=== PATIENT | female | born 1950 | race Caucasian/White ===

== ENCOUNTER → 2017-02-05 | Outpatient (CLI) | payer BC ==
[~2017-02-05] MED LIST: ALBUAER2 INH; AMB5 PO; ASPI81TA21 PO; CHOL100010 PO; CLC100X PO; FLVHFA220 INH; GARLTAB3 PO; GLC/500 PO; LISI-788 PO; OMEG10007 PO; SYN75 PO
--- NOTE | 2017-02-06 12:10 | MAMMOGRAPHY REPORT ---
BILATERAL DIGITAL SCREENING MAMMOGRAM TOMOSYNTHESIS WITH CAD: 02/05/2017 CLINICAL HISTORY: Asymptomatic. Personal history of breast cancer. TECHNIQUE: Breast tomosynthesis in addition to standard 2D mammography was performed. Current study was also evaluated with a Computer Aided Detection (CAD) system. COMPARISON: Comparison is made to exams dated: 01/03/2016 mammogram, 12/30/2014 mammogram, 12/08/2013 m ammogram, 12/07/2012 mammogram, 12/06/2011 mammogram, and 05/22/2010 mammogram - [facility] enter. BREAST COMPOSITION: There are scattered areas of fibroglandular density in both breasts. FINDINGS: Linear scar markers overlie each breast. There is a stable ribbon shaped metallic biopsy m arker in the 9:00 right breast and a few benign-appearing calcifications bilaterally. No suspicious spiculated or irregular mass, architectural distortion or cluster of microcalcifications is seen. IMPRESSION: ACR BI-RADS CATEGORY 1: NEGATIVE There is no mammographic evidence of malignancy. A 1 year screening mammogram is recommended. The pa tient will receive written notification of the results. Approximately 10% of breast cancers are not detected with mammography. A negative mammographic report should not delay biopsy if a clinically suggestive mass is present. Cathy Naik M.D. ay/:02/05/2017 15:56:10 Fish Net Stringer: Pat KHANNA(Ricardo)(Jean), [facility] letter sent: Normal 1/2 BI-RADS Code: ACR BI-RADS Category 1: Negative
== END | disposition home or self-care (01) ==
LOC: C.MAMM 11:40
PROVIDERS: ATTEND Internal Medicine Hematology
DX: Z12.31 Encounter for screening mammogram for malignant neoplasm of breast (principal)

== ENCOUNTER → 2017-05-15 | Outpatient (CLI) | payer BC ==
[2017-05-15 13:13] VITALS: BP 107/71; PULSE 81; TEMP 36.9; O2SAT 97
--- NOTE | 2017-05-15 14:10 | Radiation Oncology Follow-Up ---
Radiation Oncology Follow-Up Date of Visit May 15, 2017. Reason For Visit annual follow up Radiation Completion Date 01/03/10 Diagnosis (1) Breast cancer of upper-outer quadrant of left female breast Status: Resolved Onset Date: 09/23/2008 Histology Subtype: ductal Stage: ll (A) Permanent Comment: Infiltrating ductal carcinoma of the left breast status post partial mastectomy and sentinel lymph node biopsy followed by axillary dissection Stage [id number] estrogen receptor negative, progesterone receptor negative, HER- 2/umu positive Status post systemic chemotherapy with 4 cycles of Adriamycin and Cytoxan followed by weekly Taxol for 12 weeks then Herceptin Status post completion of radiation therapy 01/03/2010 received 6120 cGy Status post completion of one year of Herceptin Last Edited By: Jannette Fournier on May 10, 2015 13:45 Interim History She's been doing well this past year regards to her breast. She is noted no masses or tenderness no change in the axilla. She's had no swelling of her arm. She is up-to-date on mammography. She had a mammogram 02/05/2017. There was no mammographic evidence of malignancy. One-year screening mammogram was recommended. This was given a BI-RADS Category 1. She will be seeing Dr. Wilson in regards to an issue that occurred this past summer. In January she had one episode of chest pain. She describes this as a "squeezing" feeling in her chest internally. She had been under stress. Her sister has liver cancer. She is been taking her every 4-6 weeks to [facility] for immune embolization therapy. Her sister is currently doing well. Because of the episode of chest discomfort she had a stress echocardiogram. She is now been referred to Dr. Wilson for review and recommendations. She has not had any further episodes of chest discomfort. She is concerned because of her family history of heart disease. Her mother at 59 following open heart surgery. Allergies Coded Allergies: Avocado (Verified Allergy, Unknown, ITCHY MOUTH, 08/25/09) Cantaloupe (Verified Allergy, Unknown, ITCHY MOUTH, 09/29/08) Shrimp (Verified Allergy, Unknown, HIVES, 09/29/08) Home Medications Scheduled Albuterol (Ventolin), 2 PUFFS INH Q4HR PRN Aspirin Enteric Coated (Ecotrin Or Generic), 81 MG PO DAILY Cholecalciferol (Vitamin D), 1,000 INTER.UNIT PO DAILY Docusate Sodium (Colace), 100 MG PO every oother day Fish Oil (Paris-3), 1 CAP PO DAILY Fluticasone Propionate (Flovent Hfa 220MCG Inhaler *), 2 PUFF INH DAILY PRN Levothyroxine (Synthroid *), 0.075 MG PO DAILY Lisinopril/Hctz (Zestoretic 20MG/25MG), 1 TAB PO QAM Metformin Hcl (Glucophage), 500 MG PO DAILY Zolpidem Tartrate (Ambien *), 5 MG PO HS PRN [Garlic], 100 MG PO DAILY Review of Systems Gastrointestinal: Symptoms: WNL Oral: Symptoms: No Problems Respiratory: Symptoms: Productive Cough Sputum Character: clear Urinary: Symptoms: WNL Skin: Symptoms: No Problems Breast: Right Upper Arm Measurement: 34.6 Right Mid Arm Measurement: 27.5 Right Wrist Measurement: 15.3 Left Upper Arm Measurement: 33.6 Left Mid Arm Measurement: 26.5 Left Wrist Measurement: 15.3 Arm Dominence: Right Patient Cosmetic Evaluation: Good Physical Exam Vital Signs Date Time Temp Pulse Resp B/P (MAP) Pulse Ox O2 Delivery O2 Flow Rate FiO2 05/15/17 13:13 36.9 81 16 107/71 97 Pain: Pain Onset: years Pain Duration: intermet Patient Pain Scale: 0 - 10 Initial Pain Intensity: 5.0 Pain Description: Aching Fatigue: None General Appearance: no apparent distress Eyes: normal inspection, EOMI ENT: normal ENT inspection, hearing grossly normal Neck: no adenopathy, thyroid normal Respiratory/Chest: lungs clear, no respiratory distress, no accessory muscle use Breast: Breast examination reveals well-healed incisions of the left breast. There are no masses or tenderness and no axillary adenopathy. She has no skin retractions or nipple changes. Using the Macdoel score cosmesis she has a excellent outcome. The right breast showed no masses or tenderness and no axillary adenopathy. Cardiovascular: regular rate, rhythm, no gallop, no murmur Extremities: no pedal edema Neurologic/Psychiatric: no motor/sensory deficits, alert, normal mood/affect Skin: warm/dry Lymphatic: no adenopathy Additional Studies Patient: GEOVANNY CAAL [facility] Rec: [id number] Address[address]: [address] Address2: Acct ID: [id number] Date: 1950 Sex: F Ref Phy: Danielito Sandoval M.D. Att Phy: Danielito Sandoval M.D. Lola Phy: Ilya Pérez M.D. Inter Phy: aCthy Naik MD [facility] Zip: [place] [address] SC: C.MAMM Report #: [id number] Rubble Placer: KELLY Diagnosis: ASYMPTOMATIC, HX BREAST CA Service Date: 02/05/17 MNE: [id number] Ordering Dr: Danielito Sandoval M.D. CC: Danielito Sandoval M.D. CONF: DICTATED BY: Cathy Naik MD MAMMOGRAPHY REPORT BILATERAL DIGITAL SCREENING MAMMOGRAM TOMOSYNTHESIS WITH CAD: 02/05/2017 CLINICAL HISTORY: Asymptomatic. Personal history of breast cancer. TECHNIQUE: Breast tomosynthesis in addition to standard 2D mammography was performed. Current study was also evaluated with a Computer Aided Detection (CAD ) system. COMPARISON: Comparison is made to exams dated: 01/03/2016 mammogram, 12/30/2014 mammogram, 12/08/2013 mammogram, 12/07/2012 mammogram, 12/06/2011 mammogram, and mammogram - [facility]. BREAST COMPOSITION: There are scattered areas of fibroglandular density in both breasts. FINDINGS: Linear scar markers overlie each breast. There is a stable ribbon shaped metallic biopsy marker in the 9:00 right breast and a few benign- appearing calcifications bilaterally. No suspicious spiculated or irregular mass, architectural distortion or cluster of microcalcifications is seen. IMPRESSION: ACR BI-RADS CATEGORY 1: NEGATIVE There is no mammographic evidence of malignancy. A 1 year screening mammogram is recommended. The patient will receive written notification of the results. Approximately 10% of breast cancers are not detected with mammography. A negative mammographic report should not delay biopsy if a clinically suggestive mass is present. Cathy Naik M.D. ay/:02/05/2017 15:56:10 Jute Bag Sewer: Pat Gonzáles RT(Ricardo)(M), [facility] letter sent: Normal 1/2 BI-RADS Code: ACR BI-RADS Category 1: Negative Dictated by: Cathy Naik MD Signed by: Cathy Naik MD Assessment & Plan Plan: Continue with annual mammography. Continue regular follow-up with Dr. Pérez. She is planning to continue follow-up with our office in regards to breast examinations. Her medical oncologist and breast surgeon will be retiring. She'll return in 1 year. She may call our office if she has any questions or concerns in the interim. Total Time In Follow-Up I spent 20 minutes speaking to the patient and performing examination. I spent 15 minutes reviewing information in completing this note. Copy To Danielito Hines M.D.; Ilya Pérez M.D.; Danielito Sandoval M.D. Problem Qualifiers (1) Breast cancer of upper-outer quadrant of left female breast: Estrogen receptor status: negative Qualified Codes: C50.412 - Malignant neoplasm of upper-outer quadrant of left female breast; Z17.1 - Estrogen receptor negative status [ER-]
== END | disposition home or self-care (01) ==
LOC: C.ONC 13:06
PROVIDERS: ATTEND Physician Assistant Medical
DX: Z08 Encounter for follow-up examination after completed treatment for malignant neoplasm (principal); Z92.3 Personal history of irradiation; Z85.3 Personal history of malignant neoplasm of breast

== ENCOUNTER → 2018-02-06 | Outpatient (CLI) | payer BC ==
[~2018-02-06] MED LIST changes: +ASPI-319 PO; -ASPI81TA21 PO
--- NOTE | 2018-02-09 07:43 | MAMMOGRAPHY REPORT ---
BILATERAL DIGITAL SCREENING MAMMOGRAM TOMOSYNTHESIS WITH CAD: 02/06/2018 CLINICAL HISTORY: Routine screening. Patient has no complaints. TECHNIQUE: The study was acquired using full field digital technology and interpreted from soft copy. Breast tomosynthesis in addition to standard 2D mammography was performed. Current study was also ev aluated with a Computer Aided Detection (CAD) system. COMPARISON: Comparison is made to exams dated: 02/05/2017 mammogram, 01/03/2016 mammogram, 12/30/2014 m ammogram, 12/08/2013 mammogram, 12/07/2012 mammogram, and 12/06/2011 mammogram - [facility] enter. BREAST COMPOSITION: There are scattered areas of fibroglandular density in both breasts. FINDINGS: No suspicious masses, calcifications, or areas of architectural distortion are noted in either breast . There has been no significant interval change compared to prior exams. There are stable postsurgic al changes in the left upper outer quadrant from prior lumpectomy. A biopsy clip is again noted with in the right lateral breast. Scattered bilateral benign-appearing calcifications are not significant ly changed. IMPRESSION: BIRADS CATEGORY 2: BENIGN There is no mammographic evidence of malignancy. A 1 year screening mammogram is recommended.( 019) The patient will receive written notification of the results. Some breast cancers are not detected with mammography. A negative mammographic report should not polly y biopsy if a clinically suggestive mass is present. Racquel Coker M.D. ah/:02/06/2018 14:59:02 Boxing Inspector: Rosita Us, (Ricardo)(Jean)(BD), [facility] letter sent: Normal 1/2 BI-RADS Code: ACR BI-RADS Category 2: Benign
== END | disposition home or self-care (01) ==
LOC: C.MAMM 11:34
PROVIDERS: ATTEND Physician Assistant Medical
DX: Z12.31 Encounter for screening mammogram for malignant neoplasm of breast (principal)

== ENCOUNTER 2024-09-07 05:14 | Observation (INO) ==
--- NOTE | 2024-08-11 12:19 | PAT Medication Instructions ---
Medication Instructions Date of Service August 11, 2024 Home Medications amlodipine 2.5 mg tablet 2.5 mg PO QAM artificial tears(hypromellose) 0.4 % eye drops 1 drops ophthalmic (eye) Q12H PRN Dry Eye(S) albuterol sulfate 90 mcg/actuation aerosol inhaler 1 inh inhalation QID PRN sob aspirin 81 mg capsule 81 mg PO QAM cholecalciferol (vitamin D3) 25 mcg (1,000 unit) tablet (Vitamin D3) 25 mcg PO QAM cyanocobalamin (vitamin B-12) 1,000 mcg tablet (Vitamin B-12) 1,000 mcg PO QAM garlic 100 mg tablet 100 mg PO QAM levothyroxine 75 mcg tablet 75 mcg PO QAM lisinopril 20 mg-hydrochlorothiazide 25 mg tablet 1 tab PO QAM metformin 500 mg tablet 500 mg PO UD omega-3 fatty acids 1,000 mg capsule 1,000 mg PO QAM rosuvastatin 5 mg tablet (Crestor) 5 mg PO QAM zolpidem 5 mg tablet 5 mg PO HS PRN Sleep ASK your prescriber and surgeon aspirin 81 mg capsule 81 mg PO QAM STOP taking 2 weeks before surgery (or as soon as possible if surgery is within 2 weeks) garlic 100 mg tablet 100 mg PO QAM omega-3 fatty acids 1,000 mg capsule 1,000 mg PO QAM DO NOT take the morning of surgery cholecalciferol (vitamin D3) 25 mcg (1,000 unit) tablet (Vitamin D3) 25 mcg PO QAM cyanocobalamin (vitamin B-12) 1,000 mcg tablet (Vitamin B-12) 1,000 mcg PO QAM lisinopril 20 mg-hydrochlorothiazide 25 mg tablet 1 tab PO QAM metformin 500 mg tablet 500 mg PO UD Take morning of surgery With a small sip of water, OTHERWISE NOTHING TO EAT OR DRINK AFTER MIDNIGHT: amlodipine 2.5 mg tablet 2.5 mg PO QAM artificial tears(hypromellose) 0.4 % eye drops 1 drops ophthalmic (eye) Q12H PRN Dry Eye(S) (if needed) albuterol sulfate 90 mcg/actuation aerosol inhaler 1 inh inhalation QID PRN sob (use if needed; please bring rescue inhaler with you to hospital day of surgery if possible) levothyroxine 75 mcg tablet 75 mcg PO QAM rosuvastatin 5 mg tablet (Crestor) 5 mg PO QAM Take evening before surgery artificial tears(hypromellose) 0.4 % eye drops 1 drops ophthalmic (eye) Q12H PRN Dry Eye(S) (if needed) albuterol sulfate 90 mcg/actuation aerosol inhaler 1 inh inhalation QID PRN sob (if needed) zolpidem 5 mg tablet 5 mg PO HS PRN Sleep (if needed) Other Notes If you have any questions please call us at [phone] or [phone] or [phone] or [phone]
--- NOTE | 2024-08-20 11:05 | Anesthesiology Consultation ---
Date of Service August 20, 2024 Assessment & Plan (1) Encounter for pre-operative examination: - check BSG am DOS. - left arm restriction. - cardiology office visit 11/18/23 [facility]: "...doing well from cardiac standpoint...multiple cardiac risk factors including left chest radiation past borderline stress testing. Longstanding well-controlled hypertension...follow-up in 12 months..." EKG reference in note is for 2022 EKG, follow-up notation: "...no significant change..." - Outpatient joint assessment: Patient is currently scheduled for inpatient pathway. If re-evaluated and patient/surgeon requests outpatient pathway, patient is not ideal candidate for outpatient joint program from anesthesia standpoint. Chart Review Chart Review: Acceptable Risk for Surgery and Patient seen in Pre Admission Testing Teaching & Discussion Pre-Anesthesia Teaching/Discussion Notes: Instructed NPO after midnight before surgery, except medications with 15 cc of water. Medication instructions provided according to the PAT guidelines. History Surgery Operation Date: 09/07/24 08:50 Proposed Procedures p Left Total Hip Arthroplasty - Rakesh Mina MD Height/Weight Height: 5 ft 4 in Weight: 84.2 kg Allergies Allergy/AdvReac Type Severity Reaction Status Date / Time No Known Allergies Allergy Verified 08/02/24 08:54 Medications Home Medications Medication Instructions Recorded Confirmed Last Taken amlodipine 2.5 mg tablet 2.5 mg PO QAM 08/26/19 08/02/24 12/10/22 07:15 artificial tears(hypromellose) 0.4 1 drops ophthalmic (eye) Q12H PRN 08/26/19 08/02/24 Unknown % eye drops Dry Eye(S) albuterol sulfate 90 mcg/actuation 1 inh inhalation QID PRN sob 10/30/22 08/02/24 Unknown aerosol inhaler aspirin 81 mg capsule 81 mg PO QAM 10/30/22 08/02/24 Unknown cholecalciferol (vitamin D3) 25 25 mcg PO QAM 10/30/22 08/02/24 Unknown mcg (1,000 unit) tablet (Vitamin D3) cyanocobalamin (vitamin B-12) 1,000 mcg PO QAM 10/30/22 08/02/24 Unknown 1,000 mcg tablet (Vitamin B-12) garlic 100 mg tablet 100 mg PO QAM 10/30/22 08/02/24 Unknown levothyroxine 75 mcg tablet 75 mcg PO QAM 10/30/22 08/02/24 12/10/22 07:15 lisinopril 20 1 tab PO QAM 10/30/22 08/02/24 Unknown mg-hydrochlorothiazide 25 mg tablet metformin 500 mg tablet 500 mg PO UD 10/30/22 08/02/24 Unknown omega-3 fatty acids 1,000 mg 1,000 mg PO QAM 10/30/22 08/02/24 Unknown capsule rosuvastatin 5 mg tablet (Crestor) 5 mg PO QAM 10/30/22 08/02/24 12/10/22 07:15 zolpidem 5 mg tablet 5 mg PO HS PRN Sleep 10/30/22 08/02/24 Unknown Past Medical History Medical History (Updated 08/20/24 @ 15:11 by Yue Dixon PA-C) Adrenal nodule per [facility] EMR, remotely evaluated by [facility] endocrinology Asthma well controlled at this time. rarely uses albuterol inhaler. Diabetes mellitus, type 2 NIDDM History of COVID-19 (~03/2024) 03/2024, no residual symptoms Hx of blood clots (~2009) "all around her port, near arm, etc">on blood thinners for short time ~2009 Hx of breast cancer (~2008) 2008 in the left breast --> surgery + chemo/radiation Hx of migraines Hyperlipidemia Hypertension controlled, stable per pt Hypothyroidism Limb alert care status left arm Osteoarthritis Patient denies h/o stroke, seizures, heart attack, heart failure, or blood transfusions. Exercise / Class Metabolic Activity II 4-5 Yardwork/Stairs/Walk up hill (denies chest discomfort or shortness of breath with one flight of stairs-notes is walking up stairs slowly due to hip dysfunction) Past Family History Family History Other No family history of adverse response to anesthesia Past Surgical History Surgical History H/O lymph node excision left axilla updated History of cataract extraction History of cholecystectomy History of colonoscopy 2023 History of dilatation and curettage History of insertion of tunneled central venous catheter (CVC) with port History of lumpectomy of left breast left, w/axillary node dissection; limb restriction left arm History of rectal fissure rectal fissure repair as a young adult. History of removal of Port-a-Cath S/P surgical removal of pilonidal cyst S/P [place]RIA (total abdominal hysterectomy) ovaries remain Past Anesthesia History No Hx of Anesthesia Complications and No Family Hx of Anesthesia Complications History of PONV No Hx of PONV and No Hx of Motion Sickness Social History Smoking Status: Never smoker Do You Dip or Chew Tobacco: No Hx Alcohol Use: Yes alcohol intake frequency: other Alcohol Intake Frequency Comment: 3-4 drinks/year Hx Substance Use: No substance use type: does not use Review of Systems Patient denies chest pain, shortness of breath, dyspnea on exertion, snoring, witnessed apneas, reflux, fever, chills, cough, wheezing, or palpitations. Physical Exam Vital Signs Vitals BP 110/52 P 92 TEMP 98.1 SP02 97% on RA RESP 18 Physical Patient resting comfortably in chair in no acute distress, alert and oriented, responding appropriately throughout visit Full cervical extension range of motion without pain TMD 3.5 finger breadths Mallampati Score 2 Dentition: one crown; denies chipped or loose teeth, caps, implants or bridges Lungs: normal respiratory effort. Good air movement, clear throughout to auscultation, no adventitious breath sounds Cardiac: regular rate and rhythm, no murmurs noted Carotid arteries: negative bruit bilat Lab Results Anesthesia Preop Results Results Anesthesia Widget: WBC 6.13 K/ul (4.8-10.8) 08/20/24 Hgb 13.9 g/dl (12.0-16.0) 08/20/24 Hct 42.5 % (37.0-47.0) 08/20/24 Plt 270 K/uL (130-400) 08/20/24 Na 142 mmol/L (136-145) 08/20/24 K 4.1 mmol/L (3.5-5.1) 08/20/24 Cl 104 mmol/L (98-107) 08/20/24 CO2 32 mmol/L (21-32) 08/20/24 BUN 23 mg/dl (6-23) 08/20/24 Creat 0.85 mg/dl (0.6-1.2) 08/20/24 Glucose Level 126 mg/dl (70-99(Fasting)) H 08/20/24 PT 10.6 Seconds (9.0-12.0) 08/20/24 PTT 26 Seconds (21-31) 08/20/24 INR 1.0 (0.9-1.1) 08/20/24 HA1c Pending 08/20/24 Blood Type A Positive 08/20/24 Antibody Screen NEGATIVE 08/20/24 Testing Electrocardiogram Date: 11/18/23 NSR, rate 76 bpm Septal infarct, age undetermined New septal infarct per report Obtained same day as [facility] cardiology office visit Chest X-Ray Date: 08/20/24 No acute findings. Stress Test Date: 05/11/19 METS 7 MPHR 98% Negative for inducible ischemia EF 55-59% Normal LV wall motion Mild cLVH Grade I diastolic dysfunction No valvular disease
--- NOTE | 2024-09-02 21:33 | History & Physical Report ---
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 She has failed conservative measures. She is ready to have her left hip fixed. Plan: Orgran proceed with left total hip replacement. The risks Mente this procedure explained and patient understands. Informed consent was obtained. He is hill stay in the hospital overnight and likely discharge postop day 1. Her can assist in her care. As far as DVT prophylaxis will use thigh-high teds, SCDs, and a baby aspirin twice a day. (2) Diabetes mellitus, type 2: (3) Hypothyroidism: (4) Hx of breast cancer: (5) Hyperlipidemia: (6) Hypertension: (7) Asthma: History of Present Illness Chief Complaint: . Left hip pain and discomfort. Primary Care Provider: Negrito Gamez MD . 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 He has had a several history of increasing left hip pain discomfort that is gotten worse over time. She been through extensive conservative treatment which really has not helped much lately. She takes various medicines without much relief. She describes groin pain thigh pain buttock pain. He limps more as the day goes on. She is looking to have her hip fixed. Allergies Allergy/AdvReac Type Severity Reaction Status Date / Time No Known Allergies Allergy Verified 08/02/24 08:54 Home Medications Medication Instructions Recorded Confirmed Type amlodipine 2.5 mg tablet 2.5 mg PO QAM 08/26/19 08/02/24 History artificial tears(hypromellose) 0.4 1 drops ophthalmic (eye) Q12H PRN 08/26/19 08/02/24 History % eye drops Dry Eye(S) albuterol sulfate 90 mcg/actuation 1 inh inhalation QID PRN sob 10/30/22 08/02/24 History aerosol inhaler aspirin 81 mg capsule 81 mg PO QAM 10/30/22 08/02/24 History cholecalciferol (vitamin D3) 25 25 mcg PO QAM 10/30/22 08/02/24 History mcg (1,000 unit) tablet (Vitamin D3) cyanocobalamin (vitamin B-12) 1,000 mcg PO QAM 10/30/22 08/02/24 History 1,000 mcg tablet (Vitamin B-12) garlic 100 mg tablet 100 mg PO QAM 10/30/22 08/02/24 History levothyroxine 75 mcg tablet 75 mcg PO QAM 10/30/22 08/02/24 History lisinopril 20 1 tab PO QAM 10/30/22 08/02/24 History mg-hydrochlorothiazide 25 mg tablet metformin 500 mg tablet 500 mg PO UD 10/30/22 08/02/24 History omega-3 fatty acids 1,000 mg 1,000 mg PO QAM 10/30/22 08/02/24 History capsule rosuvastatin 5 mg tablet (Crestor) 5 mg PO QAM 10/30/22 08/02/24 History zolpidem 5 mg tablet 5 mg PO HS PRN Sleep 10/30/22 08/02/24 History Past Med/Surg History Problem List Encounter for pre-operative examination Arthritis of left hip Medical History Adrenal nodule per [facility] EMR, remotely evaluated by [facility] endocrinology Limb alert care status left arm History of COVID-19 (~03/2024) 03/2024, no residual symptoms Hx of migraines Hx of blood clots (~2009) "all around her port, near arm, etc">on blood thinners for short time ~2009 Osteoarthritis Diabetes mellitus, type 2 NIDDM Hypothyroidism Hx of breast cancer (~2008) 2008 in the left breast --> surgery + chemo/radiation Hyperlipidemia Hypertension controlled, stable per pt Asthma well controlled at this time. rarely uses albuterol inhaler. Surgical History History of cataract extraction History of rectal fissure rectal fissure repair as a young adult. S/P surgical removal of pilonidal cyst S/P [place] (total abdominal hysterectomy) ovaries remain History of dilatation and curettage History of cholecystectomy History of colonoscopy 2023 H/O lymph node excision left axilla updated History of lumpectomy of left breast left, w/axillary node dissection; limb restriction left arm History of insertion of tunneled central venous catheter (CVC) with port History of removal of Port-a-Cath Family History Other No family history of adverse response to anesthesia Social History Smoking Status: Never smoker Second Hand Exposure: No; Do You Dip or Chew Tobacco: No; Hx Alcohol Use: Yes Hx Substance Use: No Preferred Language: Dominican Communication Ability: Effective 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 Physical Exam . Physical examination reveals a pleasant middle-aged female. Looks to be in pretty good health. Examination of the left hip reveal patient walks with antalgic gait. Leg lengths. Pretty equal clinically. She has pain and stiffness with hip motion prickly internal rotation. She can internally rotate to about neutral. This recreates her pain. Negative straight leg raise. No knee effusion. She is neurologically intact. Constitutional WD/WN, vitals as above Respiratory normal respiratory effort, lungs clear to auscultation Cardiovascular RRR, no murmur, no edema Gastrointestinal (Abdomen) normal bowel sounds, soft, nontender, no hepatosplenomegaly Results & Data Results & Data Laboratory Results . Diagnostic Findings . X-rays of the left hip were reviewed. Shows advanced left hip DJD. She has complete loss of the joint space. Fairly concentric disease. This has progressed significantly over the past 8 months. PG Care Time/CCT Total # of Minutes Spent Total Time Spent with Patient: Total time spent is greater than 50% in coordination of care (as documented) at patient's floor/unit and/or counseling patient: Coding Level of Care Code None Diagnoses Arthritis of left hip M16.12 Diabetes mellitus, type 2 E11.9 Hypothyroidism E03.9 Hx of breast cancer Z85.3 Hyperlipidemia E78.5 Hypertension I10 Asthma J45.909
[2024-09-07] MEDS: ACETAMINOPHEN 500 MG TAB PO SCH ×2 (06:05→10:41)
[2024-09-07] MEDS: FAMOTIDINE 20 MG TAB PO SCH (06:05)
[2024-09-07] MEDS: METOCLOPRAMIDE HCL 10 MG TABLET PO SCH (06:05)
[2024-09-07] MEDS: CeleBREX 200 MG CAP PO SCH (06:06)
[2024-09-07] MEDS: dexAMETHasone**PF** 10 MG/ML VIAL IV SCH (06:06)
[2024-09-07] MEDS: LR 60ML/HR IV SCH (06:06)
[2024-09-07] MEDS: LR 500ML BOLUS, THEN 15ML/HR IV SCH (06:06)
[2024-09-07] MEDS ORDERED: ROPIVACAINE 0.5% 5 MG/ML 30 ML VIAL ONE (06:22)
[2024-09-07] MEDS ORDERED: LIDOCAINE 2% 2 ML VIAL/AMP(20MG/ML) INFIL ONE (06:37)
[2024-09-07] MEDS ORDERED: PROPOFOL IV EMULSION 10 MG/ML 20 ML VIAL IV ONE ×2 (06:38→07:38)
[2024-09-07] MEDS ORDERED: ONDANSETRON INJ 2 MG/ML 2 ML VIAL ONE (06:38)
[2024-09-07] MEDS ORDERED: SUCCINYLCHOLINE CHLORIDE 20 MG/ML 10 ML VIAL IV ONE (06:39)
[2024-09-07] MEDS ORDERED: MIDAZOLAM HCL 1 MG/ML 2ML VIAL ONE (06:40)
[2024-09-07] MEDS ORDERED: fentaNYL citrate PF 100 MCG/2 ML VIAL ONE (06:40)
--- NOTE | 2024-09-07 06:44 | History & Physical Bridge Note ---
Date of Service September 07, 2024 History & Physical Bridge Note I have examined the patient, reviewed the History & Physical and in the interval since the performance of the History & Physical I have noted the following changes of clinical significance: no changes noted
[2024-09-07] MEDS ORDERED: HYDROmorphone INJ 1 MG/ML SYRINGE IV PRN (06:47)
[2024-09-07] MEDS ORDERED: ePHEDrine sulfate 50 MG/ML AMP IV PRN (06:47)
[2024-09-07] MEDS ORDERED: ATROPINE SULFATE 0.1 MG/ML 10ML SYR IV PRN (06:47)
[2024-09-07] MEDS ORDERED: ONDANSETRON INJ 2 MG/ML 2 ML VIAL IV PRN ×2 (06:47→10:26)
[2024-09-07] MEDS: TRANEXAMIC ACID 1,000 MG **IV Pre-op IV SCH (06:51)
[2024-09-07] MEDS: ceFAZolin 2000MG 2,000 MG/15 ML SYR IV SCH ×2 (06:59→16:16)
[2024-09-07] MEDS: BUPIVACAINE/EPINEPHRINE 0.5% MPF 1:200,000 30 ML VIAL ONE (07:28)
--- NOTE | 2024-09-07 08:34 | Operative Report ---
PG Post Operative Report Pre & Post Diagnosis Operation Date: 09/07/24 07:00 Pre-Op Diagnosis: Left Osteoarthritis Hip. Post-Op Diagnosis: Left Osteoarthritis Hip. I identified the patient and participated in the time-out.: Yes Procedure Operation Date: 09/07/24 07:00 Actual Procedures p Left Total Hip Arthroplasty(Left) - Rakesh Mina MD Surgeon Rakesh Mina MD [employer] [employer] Around Gaetano Batres PA-C Estimated Blood Loss 100 Findings Consistent with Post-Op Diagnosis Specimens Left femoral head sent for pathology. 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 She has failed conservative measures. X-rays show advanced hip arthritis. This has progressed significantly over the past year. She like proceed with total hip arthroplasty. Description of Procedure Operative implants consist of: 1. Biomet G7 size 48 mm acetabular shell. 2. [place] hole motorcycle deliverer. 3. 6.5 cancellous acetabular screws 1 of 35 mm length and 1 of 25 mm length. 4. Highly cross-linked polyethylene liner with a 48 mm outer diameter and 32 mm inner diameter. 5. DePuy Corail size 8 KLA 125 degree angle short neck femoral stem. 6. +5/32 mm ceramic articular ball. The patient was taken the op room, identified, placed on the operating table in the supine position. All contact areas were appropriately padded. IV antibiotics arrived by anesthesia team. A spinal anesthetic been implemented holding area. Bean catheter was placed in sterile fashion. The patient then placed in the right lateral decubitus position. Axillary roll was placed. Distal Birkett position was used for positioning. Left hip and leg were then prepped and draped in usual sterile fashion. A posterolateral approach to the left hip was then performed to a curvilinear incision centered over the greater trochanter. Sharp dissection was got through subcutaneous cyst dental of the IT band gluteal fascia but the IT band gluteal fascia was sized longitudinally in line with skin incision. The underlying greater bursa was excised. The piriformis and external rotators along with the posterior hip joint capsule were then released in the posterior aspect the hip as a single layer. The hip was then internally rotated and dislocated. Femoral neck osteotomy cut was made with Final Cut about 7 mm above the lesser trochanter. Femoral head was removed and sent for pathology. The femur was retracted anteriorly. Attention drawn the acetabulum. The acetabular labrum was excised. The pulmonary fat was excised. Sequential reaming the acetabulum was then performed again with a size 43 and progressing up to 47. I reamed a little bit with a 48 reamer and then placed a 48 mm Biomet G7 acetabular shell in about 40 degrees lateral opening and 20 degrees of anteversion. It was fixed with two 6.5 screws. A trial liner was placed. Attention drawn the femur. The proximal femur was entered with cookie-cutter followed by canal finder. Her cancellous bone was extremely strong and supportive. I broached beginning with an 8 and could not even quite get the [address] down the calcar cut. We then trialed the hip and the +5 articular ball provided full stability and what appeared to be equal leg lengths. Soft tissue tension was appropriate. We elect to place these implants. I did not feel I could likely fit the 9 the implant down. All trial implants were removed. An apex hole motorcycle deliverer was placed. A highly cross-linked polyethylene liner was placed. A size 8 short neck 125 degree angle femoral stem was impacted in position. +5/32 mm ceramic articular ball was placed. Hip was located once again found to be stable. Attention drawn toward closing. The wounds irrigated scope size of pulsatile lavage solution. I did inject locally with 50 cc of half percent Marcaine with epinephrine. The posterior capsule and external rotators were then repaired through drill holes in the posterior trochanter with #2 Tycron suture. The IT band and gluteal fascia were then closed with #1 PDS suture in a running fashion the subcutaneous tissue then closed with 2 layers the deep layer #2 Vicryl suture in the subcutaneous tissues with 2-0 Dexon suture in a buried interrupted fashion. Skin was then closed with skin kellen. Leg was then cleaned and dried and a Prevena VAC dressing was applied due to the thick soft tissue envelope. The patient then transferred to the recovery room in stable condition. Patient tolerated procedure well and there were no complications. Gaetano Batres, my physician certified physician's assistant, was present for the entire procedure. His assistance was essential and required for appropriate patient positioning, prepping and draping, surgical exposure, performing the technical details of the operation, placement the implants, closure of the wound, and placement of the sterile bandage. I attest to the content of the Intraoperative Record and any orders documented therein. Any exceptions are noted below.
--- NOTE | 2024-09-07 08:53 | Anesthesiology Progress Note ---
Date of Service September 07, 2024 Anesthesia Post Procedure Vital Signs Vital Signs: Temp Pulse Resp BP Pulse Ox O2 Del Method 09/07/24 05:56 36.7 C 79 18 123/69 98 Room Air Transfer of Care Handoff Completed per policy Notes Mental Status: alert / awake / arousable and participated in evaluation Patient Amnestic to Procedure: Yes Nausea / Vomiting: adequately controlled Pain: adequately controlled Airway Patency, RR, SpO2: stable & adequate BP & HR: stable & adequate Hydration State: stable & adequate Anesthetic Complications: no major complications apparent and Pt Satisfied with anesthetic care
--- NOTE | 2024-09-07 09:04 | XRay Report ---
XR hip 1V LT w pelvis CLINICAL HISTORY: IN PACU - Post Surgical left hip replacement COMPARISON: 07/02/2024 FINDINGS: Portable postop AP pelvis and lateral left hip demonstrate a left hip arthroplasty with sa tisfactory positioning and alignment of the prosthetic components. Postsurgical changes are noted. Mi ld to moderate osteoarthritis is present in the right hip. IMPRESSION: Postop arthroplasty with satisfactory positioning and alignment. ACT 112: Negative or not required by law. Electronically signed by: Sofia Davis M.D. 09/07/2024 9:03 AM
[2024-09-07] MEDS: fentaNYL citrate PF 100 MCG/2 ML VIAL IV PRN (09:50)
[2024-09-07] MEDS ORDERED: DEXTROSE 50% 50 ML SYRINGE IV PRN (10:26)
[2024-09-07] MEDS ORDERED: METOCLOPRAMIDE HCL INJ 5 MG/ML 2 ML VIAL IV PRN (10:26)
[2024-09-07] MEDS ORDERED: GARLIC 100 MG PO SCH (10:26)
[2024-09-07] MEDS ORDERED: bisacodyL 10 MG SUPP PR PRN (10:26)
[2024-09-07] MEDS ORDERED: ALBUTEROL HFA 8 GM INHALER INH PRN (10:26)
[2024-09-07] MEDS ORDERED: PHARMACY GLYCEMIC MGMT CONSULT PRN (10:26)
[2024-09-07] MEDS ORDERED: ZOLPIDEM TARTRATE 5 MG TAB PO PRN (10:26)
[2024-09-07] MEDS ORDERED: GLUCOSE 10 TAB/TUBE PO PRN (10:26)
[2024-09-07] MEDS ORDERED: ALUMINUM/MAGNESIUM SUSP 30 ML UDC PO PRN (10:26)
[2024-09-07] MEDS ORDERED: MAGNESIUM HYDROXIDE SUSP 30 ML UDC PO PRN (10:26)
[2024-09-07] MEDS ORDERED: GLUCAGON FOR INJ 1 MG VIAL SQ PRN (10:26)
[2024-09-07] MEDS ORDERED: HYDROmorphone INJ 0.5 MG/0.5 ML SYR IV PRN (10:26)
[2024-09-07] MEDS ORDERED: GLUCOSE 40% GEL 15 GM TUBE PO PRN (10:26)
[2024-09-07] MEDS ORDERED: CARBOHYDRATES FOR HYPOGLYCEMIA PO PRN (10:26)
[2024-09-07] MEDS ORDERED: NALOXONE HCL 0.4 MG/1 ML VIAL/CARP IV PRN (10:26)
[2024-09-07] MEDS ORDERED: ARTIFICIAL TEARS OP PRN (10:32)
--- NOTE | 2024-09-07 10:54 | Pharmacy Report ---
Pharmacy Glycemic Short Note 2 - Date of Service September 07, 2024 - Glycemic Short BSG Results (Last 24 hours): 09/07/24 09/07/24 05:57 08:29 POC Glucose 117 H 142 H OUTPATIENT ANTIDIABETIC REGIMEN: * Metformin 500 mg PO daily HbA1c: 6.3% (08/14/24) ASSESSMENT: * EH is a 74 year old female POD #0 s/p left total hip arthroplasty * Received 10 mg IV dexamethasone in OR, ordered 10 mg IV x 1 tomorrow morning (09/08) * Preop blood sugar of 117 mg/dL, postop blood sugar of 142 mg/dL * Well-controlled T2DM as an outpatient based on HbA1c PLAN FOR INPATIENT GLYCEMIC CONTROL: * Hold outpatient oral diabetes medications * Basal insulin * Lantus 10 units SC x 1 * Reassess in AM * Bolus insulin * NovoLog per scale ACHS or Q6hrs while NPO * Goal Range: Low 110 mg/dL - High 140 mg/dL * Correction Factor: 25 mg/dL/unit * Nutritional / Prandial insulin per carb ratio of 1 unit per 7 grams CHO consumed
[2024-09-07] MEDS: SENNA 8.6 MG TAB PO SCH (11:46)
[2024-09-07] MEDS: DOCUSATE SODIUM 100 MG CAP PO SCH (11:46)
[2024-09-07] MEDS: traMADol HCL 50 MG TABLET PO PRN (11:46)
[2024-09-07] MEDS: KETOROLAC TROMETHAMINE 15 MG/ML VIAL IV SCH (11:46)
[2024-09-07] MEDS: MULTIVITAMIN TAB PO SCH (11:47)
[2024-09-07] MEDS: ASPIRIN 81 MG ECTAB PO SCH (11:48)
[2024-09-07] MEDS: CYANOCOBALAMIN (B-12) 500 MCG TABLET PO SCH (11:48)
[2024-09-07] MEDS: OMEGA-3 (PURIFIED FISH OIL) 1 GM CAP PO SCH (11:48)
[2024-09-07] MEDS: CHOLECALCIFEROL 25 MCG (1000 UNITS) TAB PO SCH (11:49)
[2024-09-07] MEDS: amLODIPine BESYLATE 5 MG TAB PO SCH (11:50)
[2024-09-07] MEDS: ROSUVASTATIN CALCIUM 5 MG TAB PO SCH (11:51)
[2024-09-07] MEDS: LISINOPRIL/HCTZ 20/25MG 1 TAB PO SCH (11:51)
[2024-09-07] MEDS: LEVOTHYROXINE SODIUM 75 MCG TABLET PO SCH (11:51)
[2024-09-07] MEDS: INSULIN ASPART PER UNIT CHARGE SC SCH (12:13)
[2024-09-07] MEDS: LANTUS PER UNIT CHARGE SC ONE (12:13)
[2024-09-07] MEDS: ASCORBIC ACID 500 MG TAB PO SCH (16:16)
[2024-09-07] MEDS: TRANEXAMIC ACID / 0.7% NACL 1,000 MG/100 ML BAG IV SCH (16:58)
[2024-09-07] MEDS ORDERED: SENNA 8.6 MG TAB PO SCH (21:00)
[2024-09-07 23:18] VITALS: TEMP 97.9
[2024-09-08 07:42] VITALS: BP 136/74; PULSE 71; RESP 18; O2SAT 96
[2024-09-08 07:52] LABS: Basophils # (auto) 0.01 K/uL (0.00-0.20); Basophils % (auto) 0.1 %; Eosinophils # (auto) 0.01 K/uL (0.00-0.50); Eosinophils % (auto) 0.1 %; Hematocrit (blood only) 35.8 % (37.0-47.0); Immature Granulocytes # (auto) 0.04 K/uL (0.01-0.20); Immature Granulocytes % (auto) 0.3 %; Lymphocytes # (auto) 1.53 K/uL (1.20-3.40); Lymphocytes % (auto) 13.2 %; Mean Corpuscular Hgb Conc 33.5 g/dL (32.0-36.0); Mean Corpuscular Volume 86.5 fL (80.0-100.0); Mean Platelet Volume 8.8 fL (9.4-12.4); Monocytes # (auto) 0.86 K/uL (0.11-0.59); Monocytes % (auto) 7.4 %; Neutrophils # (auto) 9.11 K/uL (1.40-6.50); Neutrophils % (auto) 78.9 %; Platelet Count 226 K/uL (130-400); RDW Coefficient of Variation 13.2 % (11.5-14.5); RDW Standard Deviation 41.7 fL (36.4-46.3); Red Blood Count 4.14 M/uL (4.20-5.40); White Blood Count 11.56 K/ul (4.8-10.8)
[2024-09-08 08:10] LABS: BUN Creatinine Ratio 27.8 (10-20); Calcium 9.3 mg/dl (8.6-10.3); Creatinine Clr Calc Pharmacy 52.7 ml/min; Potassium 4.1 mmol/L (3.5-5.1)
[2024-09-08] MEDS: LANTUS PER UNIT CHARGE SC SCH (08:18)
[2024-09-08] MEDS: dexAMETHasone 10 MG in SYRINGE 0 ML IV SCH (08:19)
--- NOTE | 2024-09-08 12:57 | Orthopedic Progress Note ---
Date of Service September 08, 2024 Assessment & Plan (1) Status post total replacement of left hip: (2) Aftercare following hip joint replacement surgery: Plan 74-year-old woman POD# 1 s/p left total hip replacement, doing well overall. Pain is relatively well-controlled. Medically stable. Prosthetic hip is located. She is neurologically intact. Plan: 1. DVT prophylaxis w/ thigh-high TEDs, SCDs, ASA 81 mg BID. 2. PT/OT as tolerated. WBAT on L LE. Left posterolateral approach total hip precautions/protocol. 3. Pain control doing well with current pain regimen. 4. Disposition - plan to D/C home w/ home health later today once cleared by PT/OT. 5. F/u as scheduled w/ first post-op visit. Subjective Patient is POD# 1 s/p left total hip arthroplasty by Dr. Mina on 09/07/2024. Patient says her pain is well-controlled this morning. Denies CP, SOB, N/V, L LE paresthesia. She is looking to have [facility] to come to the house for therapy. Patient says that she will be ready to go home today. Review of Systems All systems reviewed & are unremarkable except as noted in HPI & below. Physical Exam GENERAL: AA&Ox3, NAD. Pleasant, affect is calm. Sitting in bed and appears comfortable. RESPIRATORY: Normal respiratory effort with no signs of distress. CHEST/AXILLA: Chest movement symmetrical. No deformities noted. CARDIOVASCULAR: No edema noted. SKIN: [place], warm and dry. MS/EXTREMITY: Hip dressing Prevena vac c/d/i; good seal/suction noted. LASHON hose donned to contralateral LE. + ankle dorsi/plantarflexion. NVI distally. Calf soft/NT. PT/DP pulses intact, 2+. Results & Data Results & Data Laboratory Results . Laboratory Results - last 24 hr 09/07/24 09/07/24 09/08/24 16:42 20:49 06:54 WBC 11.56 H RBC 4.14 L Hgb 12.0 Hct 35.8 L MCV 86.5 MCH 29.0 MCHC 33.5 RDW Std Deviation 41.7 RDW Coeff of Daniel 13.2 Plt Count 226 MPV 8.8 L Immature Gran % (Auto) 0.3 Neut % (Auto) 78.9 Lymph % (Auto) 13.2 Gaines % (Auto) 7.4 Eos % (Auto) 0.1 Baso % (Auto) 0.1 Neut # (Auto) 9.11 H Lymph # (Auto) 1.53 Gaines # (Auto) 0.86 H Eos # (Auto) 0.01 Baso # (Auto) 0.01 Immature Gran # (Auto) 0.04 Sodium 139 Potassium 4.1 Chloride 105 Carbon Dioxide 29 Anion Gap 5 BUN 27 H Creatinine 0.97 Est Cr Clr Drug Dosing 52.7 eGFR 60.94 BUN/Creatinine Ratio 27.8 H Glucose 117 H POC Glucose 173 H 127 H Calcium 9.3 09/08/24 07:40 WBC RBC Hgb Hct MCV MCH MCHC RDW Std Deviation RDW Coeff of Daniel Plt Count MPV Immature Gran % (Auto) Neut % (Auto) Lymph % (Auto) Gaines % (Auto) Eos % (Auto) Baso % (Auto) Neut # (Auto) Lymph # (Auto) Gaines # (Auto) Eos # (Auto) Baso # (Auto) Immature Gran # (Auto) Sodium Potassium Chloride Carbon Dioxide Anion Gap BUN Creatinine Est Cr Clr Drug Dosing eGFR BUN/Creatinine Ratio Glucose POC Glucose 117 H Calcium Diagnostic Findings . Hip/Pelvis X-Ray 09/07/24 08:27 XR hip 1V LT w pelvis CLINICAL HISTORY: IN PACU - Post Surgical left hip replacement COMPARISON: 07/02/2024 FINDINGS: Portable postop AP pelvis and lateral left hip demonstrate a left hip arthroplasty with satisfactory positioning and alignment of the prosthetic components. Postsurgical changes are noted. Mild to moderate osteoarthritis is present in the right hip. IMPRESSION: Postop arthroplasty with satisfactory positioning and alignment. ACT 112: Negative or not required by law. Electronically signed by: Sofia Davis M.D. 09/07/2024 9:03 AM PG Care Time/CCT Total # of Minutes Spent Total Time Spent with Patient: Total time spent is greater than 50% in coordination of care (as documented) at patient's floor/unit and/or counseling patient: Coding [place] [address] SUB INP/OBS CARE 08/14MIN Patient Type Established History Problem Focused Exam Problem Focused Medical Decision Making Straight Forward Diagnoses Status post total replacement of left hip Z96.642 Aftercare following left hip joint replacement surgery Z47.1; Z96.642 Laterality: left (2) Aftercare following hip joint replacement surgery Laterality: left Qualified Code(s): Z47.1 - Aftercare following joint replacement surgery; Z96.642 - Presence of left artificial hip joint
--- NOTE | 2024-09-08 15:23 | Discharge Summary ---
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 He has had a several history of increasing left hip pain discomfort that is gotten worse over time. She been through extensive conservative treatment which really has not helped much lately. She takes various medicines without much relief. She describes groin pain thigh pain buttock pain. He limps more as the day goes on. She is looking to have her hip fixed. Admission Exam (Per Admitting) Physical examination reveals a pleasant middle-aged female. Looks to be in pretty good health. Examination of the left hip reveal patient walks with antalgic gait. Leg lengths. Pretty equal clinically. She has pain and stiffness with hip motion prickly internal rotation. She can internally rotate to about neutral. This recreates her pain. Negative straight leg raise. No knee effusion. She is neurologically intact. Constitutional WD/WN, vitals as above Respiratory normal respiratory effort, lungs clear to auscultation Cardiovascular RRR, no murmur, no edema Gastrointestinal (Abdomen) normal bowel sounds, soft, nontender, no hepatosplenomegaly Diagnostic Findings . X-rays of the left hip were reviewed. Shows advanced left hip DJD. She has complete loss of the joint space. Fairly concentric disease. This has progressed significantly over the past 8 months. Principal Diagnosis Same as "Discharge Diagnosis" noted below under Discharge Instructions. Discharge Exam GENERAL: AA&Ox3, NAD. Pleasant, affect is calm. Sitting in bed and appears comfortable. RESPIRATORY: Normal respiratory effort with no signs of distress. CHEST/AXILLA: Chest movement symmetrical. No deformities noted. CARDIOVASCULAR: No edema noted. SKIN: [place], warm and dry. MS/EXTREMITY: Hip dressing Prevena vac c/d/i; good seal/suction noted. LASHON hose donned to contralateral LE. + ankle dorsi/plantarflexion. NVI distally. Calf soft/NT. PT/DP pulses intact, 2+. Discharge Data Procedures Performed Operation Date: 09/07/24 07:00 Actual Procedures p Left Total Hip Arthroplasty(Left) - Rakesh Mina MD Hospital Course (1) Aftercare following hip joint replacement surgery: Laterality: left Qualified Code(s): Z47.1 - Aftercare following joint replacement surgery; Z96.642 - Presence of left artificial hip joint (2) Status post total replacement of left hip: Plan On September 07, 2024 Pamela arrived at [facility] operating room and underwent a left total hip replacement without complications. Patient had a spinal anesthetic for the procedure. Postoperatively, patient was transferred to the general orthopedic floor in stable condition and eventually started onto aspirin 81 mg twice daily for DVT prophylaxis as appropriate. Patient's hospital course was uneventful. On postoperative day #1, patient's vital signs were stable and pain was well-controlled. Patient was able to participate well with physical therapy, safely performing the necessary ambulation and range of motion exercises and properly demonstrating ADL tasks. Patient was then discharged home in stable condition, with [facility] health PT services to begin. Patient will follow-up with orthopedics in 2 to 3 weeks for postoperative care. PG Care Time/CCT Total # of Minutes Spent Total Time Spent with Patient: Total time spent is greater than 50% in coordination of care (as documented) at patient's floor/unit and/or counseling patient: Discharge Plan Discharge Items Patient Disposition: Home - Home Health Services Reason For Visit: Osteoarthritis Hip Left Discharge Diagnosis: Left Hip Replacement Activity: Per Instructions section Activity Comment: Follow/Obey hip precautions at all times. Weightbearing: Full weightbearing Weightbearing Comment: Weightbear as tolerated obeying hip precautions at all timess. Non-emergency contact: Surgeon Call non-emergency contact if: you have any medication questions Follow-up/Referrals: Negrito Gamez MD [Primary Care Provider] - Diet: Carb Consistent or DM2 Addtl Attending Provider Instructions: ACTIVITY RECOMMENDATIONS: Diet: * You may resume previous diet. Physical Therapy: * Aggressive physical therapy is not usually needed. You will learn to take care of yourself safely and walk. * Follow the "Hip Precautions Instructions." * In some cases, the manager social work at the hospital will arrange to have a therapist come to your house for the first couple of weeks to help you learn these skills. * You need to practice on your own or with the help of a family member as needed. * When you learn these skills, most of the therapy can be done on your own. Home Exercise: * You were shown a series of exercises in the hospital. Do these exercises three to four times each day including the exercises you were shown in physical therapy. Walking: * Get up and walk several times each day. For the first four weeks, try not to stand or walk for more than one hour at a time. If you do stand or walk for more than one hour, you will not hurt anything, but your leg will likely swell. * As you feel comfortable, you may change from the walker or crutches to a cane and then to independent walking. MEDICATIONS: New Medicine: * You will likely be taking one or more of these medicines: 1. Tramadol - Take, as directed, when you need it, every six hours to control your pain. 2. Aspirin - Thins your blood to lessen the chance of forming a blood clot. * The most common side effects of pain medicine and iron are nausea and constipation. If nausea or constipation is too much of a problem or if you have any questions about your new medicines or doses, call [facility] at . We will try to help you manage these issues. "VERY IMPORTANT TO READ AND REVIEW" Pain: * The immediate post-operative period after hip replacement surgery is often quite painful. * You are given a prescription for pain medicine. You should take it, as directed, when you need it, especially before physical therapy and before going to bed. Pain that interferes with sleep is very common and can last several months. * You will likely need pain medicine for the first two to four weeks. It will not stop all of the pain. The pain will lessen and as you feel better, you may change to milder pain medicine such as Tylenol. * The most common side effects of pain medicine are nausea and constipation, so don't take more than you need. SPECIAL CARE INSTRUCTIONS: TEDs/Elastic Stockings: * The white elastic stockings help limit swelling and prevent blood clots from forming in your legs. The more you wear them, the more they work. * Wear them for six weeks. Incision Site Care: * Remove dressing postoperative day 7. Keep direct shower pressure off the incision site. * After showering, cover kellen with dry gauze and change daily or more frequently if the dressing is getting saturated with drainage. * May completely stop using bandage if wound is dry and no drainage * [place] are removed between 2 and 3 weeks post-op. If your follow-up appointment is made before 2 weeks, please have your appointment re- scheduled. It is too early to remove the kellen. Prevention of Infection: * Take antibiotics one hour before any dental cleaning, dental work, urological procedure, gastrointestinal procedure or any invasive surgery in order to prevent your new joint from getting infected. * You may get the antibiotics from the doctor performing the procedure or you may call our office at before and we will call in a prescription to the pharmacy of your choice. Things to Watch For: * Drainage from the incision site that occurs more than one week after your surgery. * Severely increased leg pain or swelling. * Increased redness at the incision site. * Fever above 102 degrees Fahrenheit. * Unusual chest pain or shortness of breath. * Unusual pain or burning with urination. Call [facility] at with any of the above problems or if you have any questions about your medicines or recovery. FOLLOW UP VISIT: Make an appointment to see your doctor for approximately two weeks after surgery for a progress check and staple removal by calling the office at . Pending Studies at Discharge: No Stand-Alone Forms: My [facility], Smoking Cessation Medications and DC Order Prescriptions: Continued amlodipine 2.5 mg tablet 2.5 mg PO QAM artificial tears(hypromellose) 0.4 % drops 1 drops OP Q12H PRN (Reason: Dry Eye(S)) tramadol 50 mg tablet 50 - 100 mg PO Q8H PRN (Reason: pain) Qty: 40 0RF Rx Instructions: Take as needed for pain ondansetron 4 mg tablet,disintegrating 4 mg PO Q8 PRN (Reason: nausea) Qty: 20 1RF Rx Instructions: Take as needed for nausea sennosides [Senokot] 8.6 mg tablet 8.6 mg PO BID 14 Days Qty: 28 0RF Rx Instructions: Take two times a day to prevent/treat constipation ketorolac 10 mg tablet 10 mg PO TID 5 Days Qty: 15 0RF Rx Instructions: Take 3 times per day with food for 5 days to lessen pain and swelling. acetaminophen [Tylenol Extra Strength] 500 mg tablet 1,000 mg PO TID 30 Days Qty: 180 0RF Rx Instructions: Take 3 times per day to lessen pain. aspirin [Bulmaro Low Dose Aspirin] 81 mg tablet,delayed release (DR/EC) 81 mg PO BID 45 Days Qty: 90 0RF Rx Instructions: Take to prevent blood clots. metformin 500 mg Tablet 500 mg PO UD omega-3 fatty acids 1,000 mg Capsule 1,000 mg PO QAM garlic 100 mg Tablet 100 mg PO QAM cyanocobalamin (vitamin B-12) [Vitamin B-12] 1,000 mcg Tablet 1,000 mcg PO QAM levothyroxine 75 mcg Tablet 75 mcg PO QAM lisinopril-hydrochlorothiazide 20-25 mg Tablet 1 tab PO QAM zolpidem [Ambien] 5 mg Tablet 5 mg PO HS PRN (Reason: Sleep) albuterol sulfate 90 mcg/actuation Hfa Aerosol Inhaler 1 inh INHALATION QID PRN (Reason: sob) rosuvastatin [Crestor] 5 mg Tablet 5 mg PO QAM cholecalciferol (vitamin D3) [Vitamin D3] 25 mcg (1,000 unit) Tablet 25 mcg PO QAM aspirin 81 mg Capsule 81 mg PO QAM Admission Data Admit Date/Time: 09/07/24 08:27 Attending Provider: Rakesh Mina Admit Provider: Rakesh Mina Primary Care Provider: Negrito Gamez Other Providers: [facility],Home Health Other Interventions: Discharge Summary Assessment (RN) Last Done: 09/08/24 10:19
== END 2024-09-08 11:50 | disposition home health service (06) ==
LOC: 3W 05:14 → ASU 05:14